=== PATIENT | female | born 1945 | race Caucasian/White ===

== ENCOUNTER 2018-06-19 09:28 | Inpatient (IN) | payer MEDICARE, OTHER ==
[~2018-06-19] VITALS: Ht 165.1 cm; Wt 62.4 kg
[~2018-06-19 09:28] MED LIST: ASPIRIN E.C. 8181 MG PO; CHROMIUM PICO200 MCG PO; CITRACAL + D 251 TAB PO; CO Q-1030 MG PO; FISH OIL1000 MG PO; FLAX OIL1000 MG PO; FORTAMET500 MG PO; MULTIPLE VITAMI1 CAP PO; PRAVACHOL10 MG PO; QUERCETIN PO
[2018-07-02] VITALS (14 sets, daily range): BP systolic 104–139; BP diastolic 51–89; PULSE 80–104; TEMP 97.9–98.4
[2018-07-02] MEDS ORDERED: CLARITIN 1010 MG/TAB PO (05:45)
[2018-07-02] MEDS ORDERED: TOPROL XL 25MG25 MG PO (05:45)
[2018-07-02] MEDS ORDERED: GLUCOPHAGE500 MG/TAB PO (05:45)
[2018-07-02] MEDS ORDERED: TURMERIC500 MG PO (05:46)
[2018-07-02] MEDS ORDERED: SYSTANE 0.4%-0.1 SOL OP (05:46)
[2018-07-02] MEDS ORDERED: B COMPLEX & B121 TAB PO (05:47)
[2018-07-02] MEDS ORDERED: D3 PO (05:47)
[2018-07-02] MEDS ORDERED: FLAXSEED OIL1000 MG PO (05:48)
[2018-07-02] MEDS ORDERED: MAGNESIUM250 M1 PO (05:48)
[2018-07-02] MEDS ORDERED: OSCAL 500 TAB500 MG PO (05:48)
[2018-07-02] MEDS ORDERED: THE MEDICINE S200 M2 PO (05:48)
[2018-07-02] MEDS ORDERED: MELATONIN1 MG PO (05:49)
[2018-07-02] MEDS ORDERED: RESTASIS MULTI5.5 ML OP (05:49)
[2018-07-03 03:12] VITALS: BP 99/52; PULSE 82; TEMP 98.2
[2018-07-03 07:43] VITALS: BP 120/63; PULSE 83; TEMP 98.6
[2018-07-03 11:12] VITALS: BP 125/63; PULSE 86; TEMP 98.2
[2018-07-03 16:18] VITALS: BP 139/71; PULSE 94; TEMP 98.8
[2018-07-03 19:16] VITALS: BP 126/68; PULSE 89; TEMP 99.2
[2018-07-03 23:30] VITALS: BP 133/65; PULSE 81; TEMP 98.6
[2018-07-04 04:45] VITALS: BP 103/40; PULSE 85; TEMP 98.9
[2018-07-04 07:43] VITALS: BP 121/67; PULSE 96; TEMP 97.6
[2018-07-04 11:50] VITALS: BP 120/64; PULSE 89; TEMP 98
== END 2018-07-04 15:43 | disposition home or self-care (01) | DRG 655 ==
LOC: INPTSU 07-02 05:11 → SURG 07-02 07:30
PROVIDERS: Urology
PROC: 0TBB0ZZ Excision of Bladder, Open Approach (ICD-10-PCS; 2018-07-02)
PROC: 0WBH0ZZ Excision of Retroperitoneum, Open Approach (ICD-10-PCS; principal; 2018-07-02 07:30)
DX: Q64.4 Malformation of urachus (principal); G20 Parkinson's disease; Z88.2 Allergy status to sulfonamides; E11.9 Type 2 diabetes mellitus without complications
CPT/HCPCS: A4314; J0690; J1100; J1885; J2405; J2704; J3010; J7030